=== PATIENT | female | born 1990 | race Caucasian/White ===

== ENCOUNTER 2017-04-11 14:30 | Emergency (ER) | payer SELFPAY ==
[2017-04-11 14:47] VITALS: BP 115/66; BMI 23.1
--- NOTE | 2017-04-11 15:15 | DR.GENAD ---
HPI - PCP Primary Care Physician: NFD - Complaint/Symptoms Chief Complaint:: PT HAS BITE TO HER LEFT LATERAL SIDE THAT STARTED 2 DAYS AGO.. REDNESS EDEMA AND A SMALL KNOT NOTED .. - Nurses notes reviewed Nurses Notes Review: Yes - Source History Provided: Patient - Mode of Arrival Mode of Arrival: Ambulatory - Timing Onset of Chief Complaint: 04/09/17 Came on: Suddenly - Duration Duration: Constant How lon Duration: Days - Location Location: left breast - Severity Severity: Moderate - Modifying Factors Worsens:: palpation - Associated Signs and Symptoms Associated Signs and Symptoms: pain PMH - PMH Past Medical History: No Past Surgical History: Yes Past Surgical History Comment: PARTIAL HYS .. - Family History History of Family Medical Conditions: No - Social History Does patient currently use any type of tobacco product: No Have you used tobacco products in the last 12 months: No Type of Tobacco Use: None Does any household member use tobacco: No Alcohol Use: None Do you use any recreational Drugs:: No Lives With: Family - infectious screening In the last 2 months have you had wt loss of >10#?: NO Have you had fever, night sweats or hemotysis?: No Have you traveled outside the country in the last 6 months?: No Isolation: Standard ROS - Review of Systems Constitutional: No Symptoms Reported Eyes: No Symptoms Reported ENTM: No Symptoms Reported Respiratoy: No Symptoms Reported Cardiovascular: No Symptoms Reported Gastrointestinal/Abdominal: No Symptoms Reported Genitourinary: No Symptoms Reported Neurological: No Symptoms Reported Musculoskeletal: No Symptoms Reported Integumentary: Lesions (left lwer breast tender 1cm papule) Hematologic/Lymphatic: No Symptoms Reported Endocrine: No Symptoms Reported Psychiatric: No Symptoms Reported All Other Systems: Reviewed and Negative PE - Vital Signs Vitals: Temperature 98.1 F Pulse Rate 115 Respiratory Rate 22 Blood Pressure 115/66 O2 Sat by Pulse Oximetry 98 - General Limitations: No Limitations General Appearance: Alert, In No Apparent Distress - Head Head Exam: Normal Inspection - Eyes Eye exam: Normal Appearance, EOMI. negative: Scleral Icterus, Conjunctival Injection - ENT ENT Exam: Normal Exam, Normal Oropharynx - Neck Neck Exam: Normal Inspection, Full ROM, Trachea Midline - Respiratory Respiratory Exam: Normal Lung Sounds Bilat. negative: Accessory Muscle Use, Respiratory Distress - Extremities Extremities Exam: Normal Inspection, Full ROM. negative: Tenderness - Neurologic Neurological Exam: Alert, Oriented X3, CN II-XII Intact - Psychiatric Psychiatric Exam: Anxious - Skin Skin Exam: Intact. negative: Normal Color (1-2cm papule tender, no drainage no escar) - Diagnosis Discharge Problem: Insect bite Qualifiers: Encounter type: initial encounter Qualified Code(s): W57.XXXA - Bitten or stung by nonvenomous insect and other nonvenomous arthropods, initial encounter - Discharge Plan Condition: Stable Prescriptions: Cephalexin [Keflex] 250 mg PO TID #21 capsule Tramadol HCl [ULTRAM 50 MG *] 50 mg PO Q8H PRN #12 tab PRN Reason: Pain - Follow ups/Referrals Follow ups/Referrals: NFD,None [Primary Care Provider] - 3 days - Instructions
== END 2017-04-11 15:30 | disposition home or self-care (01) | DRG 607 ==
LOC: ER 14:53
DX: R23.8 Other skin changes (principal); W57.XXXA Bitten or stung by nonvenomous insect and other nonvenomous arthropods, initial encounter
CPT/HCPCS: 99281; 99282

== ENCOUNTER 2017-05-08 22:24 | Emergency (ER) | payer SELFPAY ==
[2017-05-08 22:31] VITALS: BMI 24.0
[2017-05-08] MEDS ORDERED: BENADRYL INJ 50 MG VIAL ONE (22:34)
[2017-05-08] MEDS ORDERED: ADRENALINE CHL INJ ONE (22:34)
[2017-05-08] MEDS ORDERED: SOLU-Medrol 125 MG VIAL ONE (22:34)
[2017-05-08] MEDS ORDERED: ADRENALINE CHL INJ SC ONE (22:45)
[2017-05-08] MEDS ORDERED: SOLU-Medrol 125 MG VIAL IVP ONE (22:51)
[2017-05-08] MEDS ORDERED: BENADRYL INJ 50 MG VIAL IV ONE (22:51)
[2017-05-08] MEDS ORDERED: ZOFRAN INJ 4 MG VIAL IVP ONE (23:33)
[2017-05-08] MEDS ORDERED: MORPHINE SULFATE INJ 4 MG IVP ONE (23:33)
[2017-05-08] MEDS ORDERED: MORPHINE SULFATE INJ 4 MG ONE (23:34)
[2017-05-08] MEDS ORDERED: ZOFRAN INJ 4 MG VIAL ONE (23:34)
--- NOTE | 2017-05-08 23:48 | DR.GENAD ---
HPI - HPI Comment HPI Comment: HISTORY BELOW. - Complaint/Symptoms Chief Complaint Doctors Comments: ALLERGY TO WOOD GLUE SHE CLEAN UP YESTERDAY.FACE SWOLLEN SOB AND THROAT TIGHT. NO MEDICATION TAKEN BEFORE COMING. Chief Complaint:: PT STATES" I THINK I'M ALLERGIC TOO SOME WOOD GLUE THAT I CLEANED UP YESTERDAY. IT STARTED ON MY HANDS AND LEGS AND ON MY FACE" - Nurses notes reviewed Nurses Notes Review: Yes - Source History Provided: Patient - Mode of Arrival Mode of Arrival: Ambulatory - Timing Onset of Chief Complaint: 05/06/17 Came on: Suddenly - Duration Duration: Constant Duration: Hours - Severity Severity: Moderate PMH - PMH Past Medical History: No Past Surgical History: Yes Surgical History: , Hysterectomy - Family History History of Family Medical Conditions: Yes Family Medical History: Cancer, Hypertension - Social History Does any household member use tobacco: No Do you use any recreational Drugs:: No Lives With: Family Lives Where: Home - infectious screening In the last 2 months have you had wt loss of >10#?: NO Have you had fever, night sweats or hemotysis?: No Have you traveled outside the country in the last 6 months?: No Isolation: Standard ROS - Review of Systems Constitutional: No Symptoms Reported Eyes: No Symptoms Reported ENTM: Mouth Swelling, Throat Swelling Respiratoy: Non-Productive Cough, Short of Breath, Wheezing. negative: Productive Cough, Hemoptysis Cardiovascular: Chest Pain Gastrointestinal/Abdominal: No Symptoms Reported Genitourinary: No Symptoms Reported Neurological: Headache, Dizziness Musculoskeletal: Muscle Pain Integumentary: Rash (FACE AND EXTREMITIES, MACULOPAPULAR AND WEEPING.) Hematologic/Lymphatic: No Symptoms Reported Endocrine: No Symptoms Reported All Other Systems: Reviewed and Negative PE - Vital Signs Vitals: Temperature 98 F Pulse Rate [Right Brachial] 78 Pulse Rate 84 Respiratory Rate 16 Blood Pressure [Left Arm] 110/82 Blood Pressure 117/68 O2 Sat by Pulse Oximetry 99 - General Limitations: No Limitations General Appearance: Alert - Head Head Exam: Normal Inspection - Eyes Eye exam: Normal Appearance - ENT ENT Exam: Normal External Ear Exam External Ear Exam: Normal External Inspection TM/Canal Exam: Bilateral Normal Nose Exam: Normal Nose Exam Mouth Exam: Normal Inspection Throat Exam: Normal Inspection. negative: Tonsillar Erythema, Tonsillomegaly, Tonsillar Exudate, R Peritonsillar Mass, L Peritonsillar Mass, Muffled Voice - Neck Neck Exam: Trachea Midline. negative: Tenderness, Meningismus, Lymphadenopathy - Chest Chest Inspection: Symmetric Chest Wall Rise - Respiratory Respiratory Exam: Normal Lung Sounds Bilat Respiratory Exam: Bilateral Wheezing, Lower Wheezing - Cardiovascular Cardiovascular Exam: Regular Rate, Normal Rhythm, Normal Heart Sounds - Abdominal Exam Abdominal Exam: Normal Bowel Sounds, Soft. negative: Tenderness - Extremities Extremities Exam: Normal Inspection - Back Back Exam: Normal Inspection - Neurologic Neurological Exam: Alert, Oriented X3 - Psychiatric Psychiatric Exam: Normal Affect - Skin Skin Exam: Rash, Erythema (HIVES WITH MACULOPAPULAR WEEPING LESIONS ON FACE EXTREMITIES.) MDM - Additional Information Additional Information Obtained From: Family - Differential Diagnosis Differential Diagnosis: ALLERGIC REACTION, SKIN RASNH, HEADACHE Course - Treatment Treatment: SEE ORDERS. PATIENT KEPT IN ED FOR TREATMENT AND OBSERVATION OF ALLERGIC REACTION. SWELLING AND RASH IMPROVING. WILL D/C HOMR ON ORAL MEDS. - Education/Counseling Education/Counseling: Patient, Education Educated On: Treatment, Diagnosis ROR - Labs Reviewed Laboratory Results Reviewed?: Yes Result Diagrams: 05/09/17 00:45 05/09/17 00:45 Laboratory: WBC 12.5 X10^3/uL (3.6-10.0) H 05/09/17 00:45 RBC 4.25 X10^6/uL (3.5-5.4) 05/09/17 00:45 Hgb 12.3 g/dL (12.0-16.0) 05/09/17 00:45 Hct 36.2 % (36.0-47.0) 05/09/17 00:45 MCV 85.3 fL (80.0-100.0) 05/09/17 00:45 MCH 29.0 pg (27.0-34.0) 05/09/17 00:45 MCHC 34.1 g/dL (33.0-35.0) 05/09/17 00:45 RDW 13.1 % (11.6-16.5) 05/09/17 00:45 Plt Count 251 X10^3/uL (150.0-450.0) 05/09/17 00:45 MPV 8.7 fL (7.4-11.0) 05/09/17 00:45 Neut % 70.4 % (42.0-75.0) 05/09/17 00:45 Lymph % 17.6 % (21.0-51.0) L 05/09/17 00:45 [place] % 5.0 % (0.0-13.0) 05/09/17 00:45 Eos % 6.3 % (0.9-2.9) H 05/09/17 00:45 Baso % 0.7 % (0.2-1.0) 05/09/17 00:45 Neut # 8.8 x10^3/uL (2.2-4.8) H 05/09/17 00:45 Lymph # 2.2 X10^3/uL (1.3-2.9) 05/09/17 00:45 [place] # 0.6 x10^3/uL (0.3-0.8) 05/09/17 00:45 Eos # 0.8 x10^3/uL (0.0-0.2) H 05/09/17 00:45 Baso # 0.1 X10^3/uL (0.0-0.1) 05/09/17 00:45 Absolute Nucleated RBC 0.0 /100WBC 05/09/17 00:45 Sodium 140 mmol/L (136-145) 05/09/17 00:45 Corrected Sodium 141 mmol/L (136-145) 05/09/17 00:45 Potassium 3.6 mmol/L (3.5-5.1) 05/09/17 00:45 Chloride 102 mmol/L (98-107) 05/09/17 00:45 Carbon Dioxide 28.8 mmol/L (21-32) 05/09/17 00:45 BUN 18 mg/dL (7-18) 05/09/17 00:45 Creatinine 1.02 mg/dL (0.55-1.02) 05/09/17 00:45 Est GFR (MDRD) Af Amer > 60 (>60) 05/09/17 00:45 Est GFR (MDRD) Non-Af > 60 (>60) 05/09/17 00:45 Glucose 149 mg/dL (65-99) H 05/09/17 00:45 Calcium 8.2 mg/dL (8.5-10.1) L 05/09/17 00:45 Corrected Calcium TNP 05/09/17 00:45 Total Bilirubin 0.10 mg/dL (0.2-1.0) L 05/09/17 00:45 AST 10 Units/L (15-37) L 05/09/17 00:45 ALT 18 Units/L (12-78) 05/09/17 00:45 Alkaline Phosphatase 79 Units/L (46-116) 05/09/17 00:45 Total Protein 7.2 g/dL (6.4-8.2) 05/09/17 00:45 Albumin 3.6 g/dL (3.4-5.0) 05/09/17 00:45 Globulin 3.6 g/dL (2.5-4.5) 05/09/17 00:45 Albumin/Globulin Ratio 1.0 Ratio (1.1-2.1) L 05/09/17 00:45 - Diagnosis Discharge Problem: Rash Allergic reaction Qualifiers: Encounter type: initial encounter Qualified Code(s): T78.40XA - Allergy, unspecified, initial encounter Angioedema Qualifiers: Encounter type: initial encounter Qualified Code(s): T78.3XXA - Angioneurotic edema, initial encounter - Discharge Plan Disposition: HOME, SELF-CARE Condition: Stable Prescriptions: [id number] [Fioricet Tab] 1 tab PO Q8H PRN #20 tab PRN Reason: Migraine Headache Hydroxyzine Pamoate [Vistaril] 25 - 50 mg PO TID PRN #30 cap PRN Reason: Prednisone [Prednisone Tab 20 mg] 20 mg PO QAM #10 tab - Follow ups/Referrals Follow ups/Referrals: NFD,None [Primary Care Provider] - 3 days NEIL MORSE [STAFF PHYSICIAN] - 3 days - Instructions Instructions: Allergies, [id number], Rash, [id number] Additional Instructions: RETURN TO ED IF WORSE.
[2017-05-09] MEDS ORDERED: SOLU-Medrol 125 MG VIAL IVP ONE ×2 (00:21→06:24)
[2017-05-09] MEDS ORDERED: NS 1000 ML 1,000 ML IV ONE (00:28)
[2017-05-09] MEDS ORDERED: PEPCID 20 MG IV PREMIX* 20 MG/50 ML BAG IV ONE ×2 (00:28→00:34)
[2017-05-09] MEDS ORDERED: DILAUDID INJ IM ONE (00:30)
[2017-05-09] MEDS ORDERED: DILAUDID INJ ONE (00:35)
[2017-05-09 00:55] LABS: BASOPHILS # (AUTO) 0.1 X10^3/uL (0.0-0.1); BASOPHILS % (AUTO) 0.7 % (0.2-1.0); EOSINOPHILS # (AUTO) 0.8 x10^3/uL (0.0-0.2); EOSINOPHILS % (AUTO) 6.3 % (0.9-2.9); HEMATOCRIT 36.2 % (36.0-47.0); HEMOGLOBIN 12.3 g/dL (12.0-16.0); LYMPHOCYTES # (AUTO) 2.2 X10^3/uL (1.3-2.9); LYMPHOCYTES % (AUTO) 17.6 % (21.0-51.0); MEAN CORPUSCULAR HGB CONC 34.1 g/dL (33.0-35.0); MEAN CORPUSCULAR VOLUME 85.3 fL (80.0-100.0); MEAN PLATELET VOLUME 8.7 fL (7.4-11.0); MONOCYTES # (AUTO) 0.6 x10^3/uL (0.3-0.8); NEUTROPHILS # (AUTO) 8.8 x10^3/uL (2.2-4.8); NEUTROPHILS % (AUTO) 70.4 % (42.0-75.0); PLATELET COUNT 251 X10^3/uL (150.0-450.0); RED BLOOD COUNT 4.25 X10^6/uL (3.5-5.4); RED CELL DISTRIBUTION WIDTH 13.1 % (11.6-16.5); WHITE BLOOD COUNT 12.5 X10^3/uL (3.6-10.0)
[2017-05-09 01:10] LABS: ALANINE AMINOTRANSFERASE 18 Units/L (12-78); ALBUMIN 3.6 g/dL (3.4-5.0); ALKALINE PHOSPHATASE 79 Units/L (46-116); ASPARTATE AMINO TRANSFERASE 10 Units/L (15-37); BLOOD UREA NITROGEN 18 mg/dL (7-18); CALCIUM 8.2 mg/dL (8.5-10.1); CARBON DIOXIDE 28.8 mmol/L (21-32); CHLORIDE 102 mmol/L (98-107); COR NA(FOR HYPERGLY) 141 mmol/L (136-145); CREATININE 1.02 mg/dL (0.55-1.02); GLUCOSE 149 mg/dL (65-99); SODIUM 140 mmol/L (136-145); TOTAL PROTEIN 7.2 g/dL (6.4-8.2); eGFR BLACK RACES > 60 (>60); eGFR NON BLACK RACES > 60 (>60)
[2017-05-09] MEDS ORDERED: BENADRYL INJ 50 MG VIAL IVP ONE (02:35)
[2017-05-09] MEDS ORDERED: BENADRYL INJ 50 MG VIAL ONE (02:36)
[2017-05-09 06:15] VITALS: BP 110/82
[2017-05-09] MEDS ORDERED: VISTARIL PO ONE ×2 (06:24→06:26)
[2017-05-09] MEDS ORDERED: SOLU-Medrol 125 MG VIAL ONE (06:26)
[2017-05-09] MEDS ORDERED: HYDROCORTISONE CRM 1% ONE (06:27)
[2017-05-09] MEDS ORDERED: HYDROCORTISONE CRM 1% TOP ONE (06:28)
== END 2017-05-09 07:41 | disposition home or self-care (01) ==
LOC: ER 22:40
DX: R21 Rash and other nonspecific skin eruption (principal); T78.40XA Allergy, unspecified, initial encounter; T78.3XXA Angioneurotic edema, initial encounter
CPT/HCPCS: 36415; 80053; 85025; 96365; 96372; 96374; 96375; 99283; A4222; Q0177; S0028; J0170; J1170; J1200; J2270; J2405; J2930

== ENCOUNTER 2017-07-17 18:58 | Emergency (ER) | payer SELFPAY ==
[2017-07-17 19:11] VITALS: BMI 23.1
[2017-07-17 19:32] LABS: BASOPHILS # (AUTO) 0.1 X10^3/uL (0.0-0.1); BASOPHILS % (AUTO) 1.1 % (0.2-1.0); EOSINOPHILS # (AUTO) 0.7 x10^3/uL (0.0-0.2); HEMOGLOBIN 12.8 g/dL (12.0-16.0); LYMPHOCYTES # (AUTO) 2.1 X10^3/uL (1.3-2.9); LYMPHOCYTES % (AUTO) 22.4 % (21.0-51.0); MEAN CORPUSCULAR HGB CONC 34.5 g/dL (33.0-35.0); MEAN CORPUSCULAR VOLUME 84.1 fL (80.0-100.0); MEAN PLATELET VOLUME 8.7 fL (7.4-11.0); MONOCYTES # (AUTO) 0.9 x10^3/uL (0.3-0.8); MONOCYTES % (AUTO) 9.2 % (0.0-13.0); NEUTROPHILS # (AUTO) 5.7 x10^3/uL (2.2-4.8); NEUTROPHILS % (AUTO) 60.3 % (42.0-75.0); PLATELET COUNT 247 X10^3/uL (150.0-450.0); RED CELL DISTRIBUTION WIDTH 12.7 % (11.6-16.5); WHITE BLOOD COUNT 9.4 X10^3/uL (3.6-10.0)
[2017-07-17 19:38] LABS: BILIRUBIN,URINE NEGATIVE (NEGATIVE); BLOOD/HEMOGLOBIN,URINE 2+ (NEGATIVE); GLUCOSE, URINE NEGATIVE (NEGATIVE); KETONES,URINE NEGATIVE (NEGATIVE); LEUKOCYTE ESTERASE ,URINE 2+ (NEGATIVE); NITRITES,URINE NEGATIVE (NEGATIVE); PROTEIN,URINE 1+ (NEGATIVE); UROBILINOGEN,URINE NORMAL (NORMAL)
[2017-07-17 19:44] LABS: APPEARANCE,URINE HAZY (CLEAR); BACTERIA,URINE TRACE /HPF (NEGATIVE); COLOR,URINE YELLOW (YELLOW); SQUAMOUS EPITHELIAL CELL,UR MODERATE /HPF (NEGATIVE)
[2017-07-17 19:46] LABS: ALANINE AMINOTRANSFERASE 22 Units/L (12-78); ALBUMIN 3.9 g/dL (3.4-5.0); ALKALINE PHOSPHATASE 76 Units/L (46-116); ASPARTATE AMINO TRANSFERASE 15 Units/L (15-37); BLOOD UREA NITROGEN 9 mg/dL (7-18); CALCIUM 8.9 mg/dL (8.5-10.1); CARBON DIOXIDE 28.8 mmol/L (21-32); CHLORIDE 105 mmol/L (98-107); CREATININE 0.82 mg/dL (0.55-1.02); SODIUM 140 mmol/L (136-145); TOTAL PROTEIN 7.6 g/dL (6.4-8.2); eGFR BLACK RACES > 60 (>60); eGFR NON BLACK RACES > 60 (>60)
[2017-07-17 19:47] LABS: BLOOD ALCOHOL < 3 mg/dL (0-19.9)
[2017-07-17 19:48] LABS: SALICYLATE < 2.8 mg/dL (2.8-20)
--- NOTE | 2017-07-17 20:50 | DR.GENAD ---
HPI - PCP Primary Care Physician: NFD - Complaint/Symptoms Chief Complaint Doctors Comments: Patient states that she has been a drug user for a long time. It started when she on antidepressants and graduated to methamphenamine. She does not like the way the medication makes her feel. She has 4 children and wants to be there for them. She spouse reports that she has tried several places in the past but nothing seem to help her. He wishes she can gent into a [facility] rehab place. Chief Complaint:: "I'M JUST DEPRESSED AND I DON'T HAVE ANY DESIRE TO LIVE. MY DRUG HABITS HAD GOT BETTER BUT NOW THEY ARE WORSE. I DON'T WANT TO USE ANYMORE. I WANT HELP. I HAVE TRIED QUITTING ON MY OWN BUT I NEED HELP." SPOUSE STATES, "SHE TELLS ME AT LEAST ONCE TO TWICE A DAY SHE JUST DOESN'T WANT TO LIVE ANYMORE. SHE HAS THREATENED TO JUMP OUT OF A TRUCK WHILE GOING DOWN THE ROAD. I WILL NOT ALLOW GUNS TO BE IN OUR HOUSE.", WHILE RUBBING AND CUDDLING PATIENT IN TRIAGE. PATIENT DENIES HAVING A PLAN OR WANTING TO HARM SELF STATES, "I JUST KNOW IF I DON'T QUIT USING I AM GOING TO ." PATIENT COMPLAINS OF HAVING COLD SWEATS, NAUSEA, AND BEING ACHING. - Source History Provided: Patient - Mode of Arrival Mode of Arrival: Ambulatory - Timing Onset of Chief Complaint: 07/17/17 PMH - PMH Past Medical History: Yes Past Medical History: Anxiety, Depression Past Medical History Comment: GESTATIONAL DIABETES. POST DEPRESSION Past Surgical History: Yes Surgical History: , Hysterectomy - Family History History of Family Medical Conditions: Yes Family Medical History: Cancer, Hypertension - Social History Does patient currently use any type of tobacco product: No Have you used tobacco products in the last 12 months: No Type of Tobacco Use: None Does any household member use tobacco: No Alcohol Use: None Do you use any recreational Drugs:: (TRAMADOL, LORCET, METH-SNORT) Lives With: Spouse Lives Where: Home - infectious screening Have you traveled outside the country in the last 6 months?: No Isolation: Standard ROS - Review of Systems Eyes: No Symptoms Reported ENTM: No Symptoms Reported Respiratoy: No Symptoms Reported Cardiovascular: No Symptoms Reported Gastrointestinal/Abdominal: No Symptoms Reported Genitourinary: No Symptoms Reported Neurological: No Symptoms Reported Musculoskeletal: No Symptoms Reported Integumentary: No Symptoms Reported Hematologic/Lymphatic: No Symptoms Reported Endocrine: No Symptoms Reported Psychiatric: No Symptoms Reported All Other Systems: Reviewed and Negative PE - Vital Signs Vitals: Temperature 98.5 F Pulse Rate [Left Brachial] 65 Pulse Rate 95 Respiratory Rate 18 Blood Pressure [Left Arm] 125/57 Blood Pressure 116/73 O2 Sat by Pulse Oximetry 99 - General Limitations: Language Barrier General Appearance: Alert, In No Apparent Distress, Anxious - Head Head Exam: Normal Inspection, Atraumatic - Eyes Eye exam: Normal Appearance, PERRL, EOMI - ENT ENT Exam: Normal Exam External Ear Exam: Normal External Inspection TM/Canal Exam: Bilateral Normal Nose Exam: Normal Nose Exam, Sinus Tenderness Mouth Exam: Normal Inspection Throat Exam: Normal Inspection - Neck Neck Exam: Normal Inspection, Full ROM - Chest Chest Inspection: Normal Inspection - Respiratory Respiratory Exam: Normal Lung Sounds Bilat Respiratory Exam: Bilateral Clear to Auscultation - Cardiovascular Cardiovascular Exam: Regular Rate, Normal Rhythm - Abdominal Exam Abdominal Exam: Normal Inspection, Normal Bowel Sounds Abdominal Tenderness: negative: RUQ, RLQ, LUQ, LLQ, Epigastrium, Suprapubic, Diffuse, Mild, Moderate, Severe, Other - Extremities Extremities Exam: Normal Inspection, Full ROM - Back Back Exam: Normal Inspection, Full ROM - Neurologic Neurological Exam: Alert, Oriented X3, CN II-XII Intact - Psychiatric Psychiatric Exam: Normal Affect, Normal Mood - Skin Skin Exam: Warm, Dry, Intact ROR - Labs Reviewed Result Diagrams: 07/17/17 19:25 07/17/17 19:25 Laboratory: WBC 9.4 X10^3/uL (3.6-10.0) 07/17/17 19:25 RBC 4.40 X10^6/uL (3.5-5.4) 07/17/17 19:25 Hgb 12.8 g/dL (12.0-16.0) 07/17/17 19:25 Hct 37.0 % (36.0-47.0) 07/17/17 19:25 MCV 84.1 fL (80.0-100.0) 07/17/17 19:25 MCH 29.0 pg (27.0-34.0) 07/17/17 19:25 MCHC 34.5 g/dL (33.0-35.0) 07/17/17 19:25 RDW 12.7 % (11.6-16.5) 07/17/17 19:25 Plt Count 247 X10^3/uL (150.0-450.0) 07/17/17 19:25 MPV 8.7 fL (7.4-11.0) 07/17/17 19:25 Neut % 60.3 % (42.0-75.0) 07/17/17 19:25 Lymph % 22.4 % (21.0-51.0) 07/17/17 19:25 [place] % 9.2 % (0.0-13.0) 07/17/17 19:25 Eos % 7.0 % (0.9-2.9) H 07/17/17 19:25 Baso % 1.1 % (0.2-1.0) H 07/17/17 19:25 Neut # 5.7 x10^3/uL (2.2-4.8) H 07/17/17 19:25 Lymph # 2.1 X10^3/uL (1.3-2.9) 07/17/17 19:25 [place] # 0.9 x10^3/uL (0.3-0.8) H 07/17/17 19:25 Eos # 0.7 x10^3/uL (0.0-0.2) H 07/17/17 19:25 Baso # 0.1 X10^3/uL (0.0-0.1) 07/17/17 19:25 Absolute Nucleated RBC 0.0 /100WBC 07/17/17 19:25 Sodium 140 mmol/L (136-145) 07/17/17 19:25 Corrected Sodium TNP 07/17/17 19:25 Potassium 3.6 mmol/L (3.5-5.1) 07/17/17 19:25 Chloride 105 mmol/L (98-107) 07/17/17 19:25 Carbon Dioxide 28.8 mmol/L (21-32) 07/17/17 19:25 BUN 9 mg/dL (7-18) 07/17/17 19:25 Creatinine 0.82 mg/dL (0.55-1.02) 07/17/17 19:25 Est GFR (MDRD) Af Amer > 60 (>60) 07/17/17 19:25 Est GFR (MDRD) Non-Af > 60 (>60) 07/17/17 19:25 Glucose 107 mg/dL (65-99) H 07/17/17 19:25 Calcium 8.9 mg/dL (8.5-10.1) 07/17/17 19:25 Corrected Calcium TNP 07/17/17 19:25 Total Bilirubin 0.30 mg/dL (0.2-1.0) 07/17/17 19:25 AST 15 Units/L (15-37) 07/17/17 19:25 ALT 22 Units/L (12-78) 07/17/17 19:25 Alkaline Phosphatase 76 Units/L (46-116) 07/17/17 19:25 Total Protein 7.6 g/dL (6.4-8.2) 07/17/17 19:25 Albumin 3.9 g/dL (3.4-5.0) 07/17/17 19:25 Globulin 3.7 g/dL (2.5-4.5) 07/17/17 19:25 Albumin/Globulin Ratio 1.1 Ratio (1.1-2.1) 07/17/17 19:25 Specimen Type Clean catch urine 07/17/17 19:28 Urine Color Yellow (YELLOW) 07/17/17 19:28 Urine Appearance Hazy (CLEAR) 07/17/17 19:28 Urine pH 5.0 (5.0 - 8.0) 07/17/17 19:28 Ur Specific [place] 1.020 (1.000-1.030) 07/17/17 19:28 Urine Protein 1+ (NEGATIVE) 07/17/17 19:28 Urine Glucose (UA) Negative (NEGATIVE) 07/17/17 19:28 Urine Ketones Negative (NEGATIVE) 07/17/17 19:28 Urine Occult Blood 2+ (NEGATIVE) 07/17/17 19:28 Urine Nitrite Negative (NEGATIVE) 07/17/17 19:28 Urine Bilirubin Negative (NEGATIVE) 07/17/17 19:28 Urine Urobilinogen Normal (NORMAL) 07/17/17 19:28 Ur Leukocyte Esterase 2+ (NEGATIVE) 07/17/17 19:28 Urine RBC 3-5 /HPF (NEGATIVE) 07/17/17 19:28 Urine WBC 0-2 /HPF (NEGATIVE) 07/17/17 19: Ur Squamous Epith Cells Moderate /HPF (NEGATIVE) 07/17/17 19: Urine Bacteria Trace /HPF (NEGATIVE) 07/17/17 19:28 Ur Culture Indicated? No/not indicated 07/17/17 19:28 Salicylates < 2.8 mg/dL (2.8-20) L 07/17/17 19: Urine Opiates Screen Positive (NEG=<300) A 07/17/17 19: Urine Methadone Screen Negative (NEG=<300) 07/17/17: Acetaminophen 0.0 ug/mL (10-30) L 07/17/17: Ur Barbiturates Screen Negative (NEG=<200) 07/17/17 19: Ur Phencyclidine Scrn Negative (NEG=<25) 07/17/17 19: Ur Amphetamines Screen Positive (NEG=<1000) A 07/17/17: U Benzodiazepines Scrn Negative (NEG=<200) 07/17/17: Urine Cocaine Screen Negative (NEG=<300) 07/17/17: U Marijuana (THC) Screen Negative (NEG=<50) 07/17/17: Ethyl Alcohol mg/dL < 3 mg/dL (0-19.9) 07/17/17 19:25 - Diagnosis Discharge Problem: Methamphetamine addiction - Discharge Plan Disposition: 01 HOME, SELF-CARE Condition: Stable - Follow ups/Referrals Follow ups/Referrals: NFD,None [Primary Care Provider] - 3 days - Instructions
[2017-07-18 03:18] VITALS: BP 125/57
== END 2017-07-18 10:45 | disposition home or self-care (01) ==
LOC: ER 19:23
DX: F15.20 Other stimulant dependence, uncomplicated (principal)
CPT/HCPCS: 36415; 80053; 80307; 80320; 81001; 85025; 93005; 93010; 99283; 99285; G0434; G6038; G6039; G6040

== ENCOUNTER 2017-11-30 13:12 | Emergency (ER) | payer SELFPAY ==
[2017-11-30 13:21] VITALS: BP 128/84; BMI 24.0
--- NOTE | 2017-11-30 15:19 | DR.GENAD ---
HPI - PCP Primary Care Physician: none - Complaint/Symptoms Chief Complaint Doctors Comments: Multiple and divergent complaints. She states that she was bit by a tick in March of 2017 and her health has been going down hill ever since. She has not sought medical help. Mostly actively now she's noted worms in her stools + agdominal pain since a few days. also, she c/o 3 weeks of dysuria. Chief Complaint:: Pt states she was bit by a tick last summer. Since then pt c/ o worsening symptoms including stiff neck,blurred vision, headache, abdominal pain, peeing blood, lossing hair, deep bone pain, and numbness in extremities, as well as "parasites" note in bowel movement. States "my stomach moves like there's a baby in it" - Nurses notes reviewed Nurses Notes Review: Yes - Source History Provided: Patient - Mode of Arrival Mode of Arrival: Ambulatory - Timing Onset of Chief Complaint: 11/30/17 PMH - PMH Past Medical History: No Past Medical History: Anxiety, Depression Past Surgical History: No Surgical History: Past Surgical History Comment: partial hysterectomy - Family History History of Family Medical Conditions: Yes Family Medical History: Cancer, Hypertension - Social History Does patient currently use any type of tobacco product: No Have you used tobacco products in the last 12 months: No Type of Tobacco Use: None Does any household member use tobacco: Yes Alcohol Use: None Do you use any recreational Drugs:: No Lives With: Spouse Lives Where: Home - infectious screening In the last 2 months have you had wt loss of >10#?: NO Have you had fever, night sweats or hemotysis?: No Have you traveled outside the country in the last 6 months?: No Isolation: Standard ROS - Review of Systems Constitutional: No Symptoms Reported Eyes: No Symptoms Reported ENTM: No Symptoms Reported Respiratoy: No Symptoms Reported Cardiovascular: No Symptoms Reported Gastrointestinal/Abdominal: Abdominal Pain Genitourinary: Hematuria, Other (dysuria) Neurological: No Symptoms Reported Musculoskeletal: No Symptoms Reported Integumentary: No Symptoms Reported Hematologic/Lymphatic: No Symptoms Reported Endocrine: No Symptoms Reported Psychiatric: No Symptoms Reported PE - Vital Signs Vitals: Temperature 98.1 F Pulse Rate 116 Respiratory Rate 20 Blood Pressure [Left Arm] 125/57 Blood Pressure 128/84 O2 Sat by Pulse Oximetry 100 - General Limitations: No Limitations General Appearance: Alert, In No Apparent Distress - Head Head Exam: Normal Inspection - Eyes Eye exam: Normal Appearance - ENT ENT Exam: Normal Exam - Neck Neck Exam: Normal Inspection - Chest Chest Inspection: Normal Inspection - Respiratory Respiratory Exam: Normal Lung Sounds Bilat - Cardiovascular Cardiovascular Exam: Regular Rate, Normal Rhythm, +S2, +S3 - Abdominal Exam Abdominal Exam: Normal Inspection, Normal Bowel Sounds, Soft, Tenderness ( diffuse) Abdominal Tenderness: Diffuse - Extremities Extremities Exam: Normal Inspection, Full ROM - Back Back Exam: Normal Inspection - Neurologic Neurological Exam: Alert, Oriented X3 - Psychiatric Psychiatric Exam: Normal Affect, Normal Mood - Skin Skin Exam: Warm ROR - Labs Reviewed Result Diagrams: 11/30/17 15:11/30/17 15 Laboratory: WBC 8.0 X10^3/uL (3.6-10.0) 11/30/17 15: RBC 4.37 X10^6/uL (3.5-5.4) 11/30/17: Hgb 12.5 g/dL (12.0-16.0) 11/30/17: Hct 35.7 % (36.0-47.0) L 11/30/17: MCV 81.7 fL (80.0-100.0) 11/30/17: MCH 28.6 pg (27.0-34.0) 11/30/17: MCHC 35.0 g/dL (33.0-35.0) 11/30/17: RDW 13.1 % (11.6-16.5) 11/30/17 Plt Count 263 X10^3/uL (150.0-450.0) 11/30/17 MPV 8.5 fL (7.4-11.0) 11/30/17: Neut % 57.4 % (42.0-75.0) 11/30/17: Lymph % 21.8 % (21.0-51.0) 11/30/17: [place] % 16.3 % (0.0-13.0) H 11/30/17 15: Eos % 3.8 % (0.9-2.9) H 11/30/17: Baso % 0.7 % (0.2-1.0) 11/30/17 15: Neut # 4.6 x10^3/uL (2.2-4.8) 11/30/17: Lymph # 1.7 X10^3/uL (1.3-2.9) 11/30/17: [place] # 1.3 x10^3/uL (0.3-0.8) H 11/30/17: Eos # 0.3 x10^3/uL (0.0-0.2) H 11/30/17: Baso # 0.1 X10^3/uL (0.0-0.1) 11/30/17: Absolute Nucleated RBC 0.0 /100WBC 11/30/17: Sodium 139 mmol/L (136-145) 11/30/17: Corrected Sodium TNP 11/30/17: Potassium 3.9 mmol/L (3.5-5.1) 11/30/17: Chloride 103 mmol/L (98-107) 11/30/17: Carbon Dioxide 27.0 mmol/L (21-32) 11/30/17: BUN 11 mg/dL (7-18) 11/30/17: Creatinine 0.82 mg/dL (0.55-1.02) 11/30/17: Est GFR (MDRD) Af Amer > 60 (>60) 11/30/17: Est GFR (MDRD) Non-Af > 60 (>60) 11/30/17: Glucose 89 mg/dL (65-99) 11/30/17: Calcium 9.1 mg/dL (8.5-10.1) 11/30/17: Corrected Calcium TNP 11/30/17: Total Bilirubin 0.30 mg/dL (0.2-1.0) 11/30/17: AST 15 Units/L (15-37) 11/30/17: ALT 20 Units/L (12-78) 11/30/17: Alkaline Phosphatase 75 Units/L (46-116) 11/30/17: Total Protein 7.8 g/dL (6.4-8.2) 11/30/17 15: Albumin 3.7 g/dL (3.4-5.0) 11/30/17 15: Globulin 4.1 g/dL (2.5-4.5) 11/30/17 15: Albumin/Globulin Ratio 0.9 Ratio (1.1-2.1) L 11/30/17 15: Amylase 44 Units/L (25-115) 11/30/17 15: Lipase 101 Units/L (73-393) 11/30/17 15:26 Specimen Type Clean catch urine 11/30/17 17:45 Urine Color Yellow (YELLOW) 11/30/17 17:45 Urine Appearance Clear (CLEAR) 11/30/17 17:45 Urine pH 5.0 (5.0 - 8.0) 11/30/17 17:45 Ur Specific [place] 1.015 (1.000-1.030) 11/30/17 17:45 Urine Protein Negative (NEGATIVE) 11/30/17 17:45 Urine Glucose (UA) Negative (NEGATIVE) 11/30/17 17:45 Urine Ketones Negative (NEGATIVE) 11/30/17 17:45 Urine Occult Blood 1+ (NEGATIVE) 11/30/17 17:45 Urine Nitrite Negative (NEGATIVE) 11/30/17 17:45 Urine Bilirubin Negative (NEGATIVE) 11/30/17 17:45 Urine Urobilinogen Normal (NORMAL) 11/30/17 17:45 Ur Leukocyte Esterase Negative (NEGATIVE) 11/30/17 17:45 Urine RBC 2-4 /HPF (NEGATIVE) 11/30/17 17:45 Urine WBC 0-2 /HPF (NEGATIVE) 11/30/17 17:45 Ur Squamous Epith Cells Many /HPF (NEGATIVE) 11/30/17 17:45 Urine Bacteria Trace /HPF (NEGATIVE) 11/30/17 17:45 Urine Mucus Few /HPF (NEGATIVE) 11/30/17 17:45 Ur Culture Indicated? No/not indicated 11/30/17 17:45 - Diagnosis Discharge Problem: Abdominal pain - Discharge Plan Disposition: 01 HOME, SELF-CARE Condition: Stable - Follow ups/Referrals Follow ups/Referrals: NFD,None [Primary Care Provider] - 3 days - Instructions
[2017-11-30 15:38] LABS: BASOPHILS # (AUTO) 0.1 X10^3/uL (0.0-0.1); BASOPHILS % (AUTO) 0.7 % (0.2-1.0); EOSINOPHILS # (AUTO) 0.3 x10^3/uL (0.0-0.2); EOSINOPHILS % (AUTO) 3.8 % (0.9-2.9); HEMATOCRIT 35.7 % (36.0-47.0); HEMOGLOBIN 12.5 g/dL (12.0-16.0); LYMPHOCYTES # (AUTO) 1.7 X10^3/uL (1.3-2.9); LYMPHOCYTES % (AUTO) 21.8 % (21.0-51.0); MEAN CORPUSCULAR HEMOGLOBIN 28.6 pg (27.0-34.0); MEAN CORPUSCULAR VOLUME 81.7 fL (80.0-100.0); MEAN PLATELET VOLUME 8.5 fL (7.4-11.0); MONOCYTES # (AUTO) 1.3 x10^3/uL (0.3-0.8); MONOCYTES % (AUTO) 16.3 % (0.0-13.0); NEUTROPHILS # (AUTO) 4.6 x10^3/uL (2.2-4.8); NEUTROPHILS % (AUTO) 57.4 % (42.0-75.0); PLATELET COUNT 263 X10^3/uL (150.0-450.0); RED BLOOD COUNT 4.37 X10^6/uL (3.5-5.4); RED CELL DISTRIBUTION WIDTH 13.1 % (11.6-16.5)
[2017-11-30 15:45] LABS: ALANINE AMINOTRANSFERASE 20 Units/L (12-78); ALBUMIN 3.7 g/dL (3.4-5.0); ALKALINE PHOSPHATASE 75 Units/L (46-116); AMYLASE 44 Units/L (25-115); ASPARTATE AMINO TRANSFERASE 15 Units/L (15-37); BLOOD UREA NITROGEN 11 mg/dL (7-18); CALCIUM 9.1 mg/dL (8.5-10.1); CHLORIDE 103 mmol/L (98-107); CREATININE 0.82 mg/dL (0.55-1.02); LIPASE 101 Units/L (73-393); SODIUM 139 mmol/L (136-145); TOTAL PROTEIN 7.8 g/dL (6.4-8.2); eGFR BLACK RACES > 60 (>60); eGFR NON BLACK RACES > 60 (>60)
--- NOTE | 2017-11-30 16:31 | CT ---
CT abdomen and pelvis without contrast Indication: Abdominal pain Technique: Helical CT images of the abdomen and pelvis were obtained without IV contrast. Reformatted images in the coronal and sagittal planes were also generated for review. Comparison: None Findings: Lung bases are clear. No aggressive osseous lesions are identified. Within the limits of a noncontrast exam, the liver, gallbladder, spleen, pancreas and adrenals are un remarkable. There are punctate nonobstructing stones within the mid and inferior right kidney (Steve l image 27). No additional radiopaque urinary tract stones are identified and there is no left or rig ht hydroureteronephrosis. There is no bowel inflammation or obstruction. The retrocecal appendix is normal. The IVC, abdominal aorta and urinary bladder are normal. The uterus is not identified and may be absent. A tiny fat cont aining umbilical hernia is noted. Multiple shotty mesenteric lymph nodes are present, none pathologic ally enlarged. No free air or free fluid is identified. Impression: Shotty mesenteric lymph nodes are nonspecific but can be seen with mesenteric panniculitis in the ceferino ropriate clinical setting. Correlation recommended. Otherwise, no acute abnormality identified to explain patient's symptoms, within the limitations of a noncontrast exam. Nonobstructing right nephrolithiasis. Reported By:
[2017-11-30 17:55] LABS: BILIRUBIN,URINE NEGATIVE (NEGATIVE); BLOOD/HEMOGLOBIN,URINE 1+ (NEGATIVE); GLUCOSE, URINE NEGATIVE (NEGATIVE); KETONES,URINE NEGATIVE (NEGATIVE); LEUKOCYTE ESTERASE ,URINE NEGATIVE (NEGATIVE); NITRITES,URINE NEGATIVE (NEGATIVE); PROTEIN,URINE NEGATIVE (NEGATIVE); UROBILINOGEN,URINE NORMAL (NORMAL)
[2017-11-30 18:02] LABS: APPEARANCE,URINE CLEAR (CLEAR); BACTERIA,URINE TRACE /HPF (NEGATIVE); COLOR,URINE YELLOW (YELLOW); MUCUS,URINE FEW /HPF (NEGATIVE); SQUAMOUS EPITHELIAL CELL,UR MANY /HPF (NEGATIVE)
[2017-11-30] MEDS ORDERED: NUBAIN INJ 200 MG VIAL MULTIDOSE IVP ONE (18:07)
[2017-11-30] MEDS ORDERED: NUBAIN INJ 200 MG VIAL MULTIDOSE IM ONE (18:08)
== END 2017-11-30 18:29 | disposition home or self-care (01) ==
LOC: ER 13:31
DX: R10.84 Generalized abdominal pain (principal)
CPT/HCPCS: 36415; 74176; 80053; 81001; 82150; 83690; 85025; 99282; 99283